=== PATIENT | female | born 1980 | race Caucasian/White ===

== ENCOUNTER 2022-12-02 17:31 | Inpatient (IN) | payer BC ==
[~2022-12-02] VITALS: Ht 160 cm; Wt 121.1 kg
[2022-12-02 17:42] VITALS: BP_SYST 146; PULSE 119; RESP 18; TEMP 98.2; O2SAT 97
[2022-12-02 18:54] LABS: PROTHROMBIN TIME 10.3 SECS (9.5-12.5)
[2022-12-02 18:56] LABS: CALCIUM 8.3 mg/dL (8.4-11.0); CREATININE 0.65 mg/dL (0.55-1.30); POTASSIUM 3.5 mmol/L (3.5-5.1)
[2022-12-02 19:01] LABS: ALBUMIN 3.5 g/dL (3.4-4.8); TOTAL BILIRUBIN 0.4 mg/dL (0.0-1.0); TOTAL PROTEIN, SERUM 7.1 g/dL (6.4-8.3)
[2022-12-02 19:04] LABS: BASOPHILS # (AUTO) 0.1 K/uL (0.0-0.2); BASOPHILS % (AUTO) 0.8 % (0.0-2.0); EOSINOPHILS # (AUTO) 0.2 K/uL (0.0-0.4); EOSINOPHILS % (AUTO) 1.2 % (0.0-4.0); LYMPHOCYTES # (AUTO) 2.5 K/uL (1.0-5.5); LYMPHOCYTES % (AUTO) 17.9 % (20.5-51.5); MEAN CORPUSCULAR HEMOGLOBIN 18 pg (27-31); MEAN CORPUSCULAR HGB CONC 29 % (32-36); MEAN CORPUSCULAR VOLUME 64 fL (79.0-98.0); MONOCYTES # (AUTO) 0.9 K/uL (0.0-1.0); MONOCYTES % (AUTO) 6.3 % (1.7-9.3); NEUTROPHILS # (AUTO) 10.2 K/uL (1.8-7.7); NEUTROPHILS % (AUTO) 73.8 % (40.0-70.0); PLATELET COUNT (AUTO) 474 K/uL (130-430); RED BLOOD CELL COUNT(AUTO) 2.99 MIL/uL (4.2-6.2); RED CELL DISTRIBUTION WIDTH 20.6 % (9.0-15.0); WHITE BLOOD COUNT (AUTO) 13.8 K/uL (4.8-10.8)
[2022-12-02 19:14] LABS: HEMATOCRIT 19.1 % (36-48); HEMOGLOBIN 5.4 g/dL (12.0-16.0)
[2022-12-02 19:37] LABS: BILIRUBIN,URINE NEGATIVE (NEGATIVE); BLOOD, URINE 3+ (NEGATIVE); COLOR,URINE YELLOW (YELLOW); GLUCOSE,URINE NEGATIVE (NEGATIVE); KETONES,URINE NEGATIVE (NEGATIVE); LEUKOCYTE ESTERASE ,URINE NEGATIVE (NEGATIVE); NITRITE, URINE NEGATIVE (NEGATIVE); PROTEIN URINE NEGATIVE (NEGATIVE); UROBILINOGEN,URINE 0.2 (0.2-1.0)
[2022-12-02 19:44] LABS: CLARITY/URINE SLIGHTLY HAZY (CLEAR)
[2022-12-02 20:03] LABS: RBC,URINE 50-80 /HPF (0-3); WBC,URINE 0-3 /HPF (0-3)
[2022-12-02 20:04] LABS: BACTERIA,URINE FEW /HPF (None Seen); MUCUS,URINE None Seen /LPF (None Seen)
[2022-12-02 20:13] LABS: ANISOCYTOSIS 2+; HYPOCHROMASIA 2+; POLYCHROMASIA 1+
[2022-12-02 20:14] LABS: STOMATOCYTES FEW
[2022-12-02] MEDS ORDERED: NALOXONE HCL 0.4 MG/ML AMP (NARCAN) IVP PRN ×2 (22:15)
[2022-12-02] MEDS ORDERED: LORazepam 2 MG/ML VIAL IVP PRN (22:15)
[2022-12-02] MEDS ORDERED: ACETAMINOPHEN 325 MG TABLET PO PRN (22:15)
[2022-12-02] MEDS ORDERED: ONDANSETRON HCL 4 MG/2 ML VIAL IVP PRN (22:15)
[2022-12-02] MEDS ORDERED: HYDROcodone/ACETAMIN 10-325 MG TAB PO PRN (22:15)
[2022-12-02] MEDS ORDERED: SOD FERRIC GLUC COMPLEX/SUC 125 MG in NS 100 ML IV SCH (22:15)
[2022-12-02] MEDS ORDERED: HYDROcodone/ACETAMIN 5-325 MG TAB (NORCO/ VICODIN) PO PRN (22:15)
[2022-12-02 22:56] VITALS: BP_SYST 111; PULSE 105; RESP 19; TEMP 98.8; O2SAT 99
[2022-12-02 23:12] VITALS: O2SAT 98
[2022-12-03 00:40] VITALS: BP_SYST 120; PULSE 95; RESP 19; TEMP 98.2; O2SAT 99
[2022-12-03] MEDS ORDERED: SOD FERRIC GLUC COMPLEX/SUC 62.5 MG/5 ML VIAL (FERRLECIT) IV ONE (04:19)
[2022-12-03 04:28] VITALS: BP_SYST 116; PULSE 93; RESP 18; TEMP 98.4; O2SAT 93
[2022-12-03] MEDS: SOD FERRIC GLUC COMPLEX/SUC 125 MG in NS 100 ML IV SCH (05:10)
[2022-12-03 05:41] LABS: BASOPHILS # (AUTO) 0.1 K/uL (0.0-0.2); EOSINOPHILS # (AUTO) 0.2 K/uL (0.0-0.4); EOSINOPHILS % (AUTO) 1.9 % (0.0-4.0); HEMOGLOBIN 7.7 g/dL (12.0-16.0); LYMPHOCYTES # (AUTO) 2.2 K/uL (1.0-5.5); MEAN CORPUSCULAR HEMOGLOBIN 21 pg (27-31); MEAN CORPUSCULAR HGB CONC 30 % (32-36); MEAN CORPUSCULAR VOLUME 70 fL (79.0-98.0); MONOCYTES # (AUTO) 0.8 K/uL (0.0-1.0); MONOCYTES % (AUTO) 6.4 % (1.7-9.3); NEUTROPHILS # (AUTO) 9.4 K/uL (1.8-7.7); NEUTROPHILS % (AUTO) 73.7 % (40.0-70.0); PLATELET COUNT (AUTO) 411 K/uL (130-430); RED BLOOD CELL COUNT(AUTO) 3.72 MIL/uL (4.2-6.2); RED CELL DISTRIBUTION WIDTH 26.3 % (9.0-15.0); WHITE BLOOD COUNT (AUTO) 12.7 K/uL (4.8-10.8)
[2022-12-03] MEDS: NORMAL SALINE 5 ML DISP.SYRIN IVF SCH ×3 (05:41→23:35)
[2022-12-03 06:31] LABS: ALBUMIN 3.2 g/dL (3.4-4.8); CALCIUM 7.8 mg/dL (8.4-11.0); CREATININE 0.58 mg/dL (0.55-1.30); PHOSPHORUS 3.8 mg/dL (2.7-4.5); POTASSIUM 3.8 mmol/L (3.5-5.1); TOTAL BILIRUBIN 0.6 mg/dL (0.0-1.0); TOTAL PROTEIN, SERUM 6.6 g/dL (6.4-8.3)
[2022-12-03 08:00] VITALS: BP_SYST 122; PULSE 71; RESP 16; TEMP 98.6; O2SAT 96
[2022-12-03 12:00] VITALS: BP_SYST 119; PULSE 88; RESP 16; TEMP 98.1; O2SAT 97
[2022-12-03 16:00] VITALS: BP_SYST 125; PULSE 83; RESP 16; TEMP 99; O2SAT 98
[2022-12-03 20:00] VITALS: BP_SYST 124; PULSE 90; RESP 18; TEMP 97.6; O2SAT 100
[2022-12-04 01:32] VITALS: BP_SYST 125; PULSE 88; RESP 19; TEMP 97.8; O2SAT 98
[2022-12-04 05:26] LABS: ERYTHROCYTE SEDIMENTATION RATE 7 MM/HR (0-20)
[2022-12-04] MEDS: SOD FERRIC GLUC COMPLEX/SUC 125 MG in NS 100 ML IV SCH (05:33)
[2022-12-04] MEDS: NORMAL SALINE 5 ML DISP.SYRIN IVF SCH ×2 (05:36→14:00)
[2022-12-04 05:42] LABS: BASOPHILS # (AUTO) 0.1 K/uL (0.0-0.2); BASOPHILS % (AUTO) 0.8 % (0.0-2.0); EOSINOPHILS # (AUTO) 0.3 K/uL (0.0-0.4); EOSINOPHILS % (AUTO) 2.6 % (0.0-4.0); HEMATOCRIT 26.6 % (36-48); HEMOGLOBIN 7.9 g/dL (12.0-16.0); LYMPHOCYTES # (AUTO) 2.1 K/uL (1.0-5.5); LYMPHOCYTES % (AUTO) 18.4 % (20.5-51.5); MEAN CORPUSCULAR HEMOGLOBIN 21 pg (27-31); MEAN CORPUSCULAR HGB CONC 30 % (32-36); MEAN CORPUSCULAR VOLUME 70 fL (79.0-98.0); MONOCYTES # (AUTO) 0.8 K/uL (0.0-1.0); MONOCYTES % (AUTO) 7.2 % (1.7-9.3); NEUTROPHILS # (AUTO) 8.2 K/uL (1.8-7.7); PLATELET COUNT (AUTO) 420 K/uL (130-430); RED BLOOD CELL COUNT(AUTO) 3.79 MIL/uL (4.2-6.2); RED CELL DISTRIBUTION WIDTH 25.6 % (9.0-15.0); WHITE BLOOD COUNT (AUTO) 11.5 K/uL (4.8-10.8)
[2022-12-04 05:57] LABS: CALCIUM 8.3 mg/dL (8.4-11.0); CREATININE 0.61 mg/dL (0.55-1.30); POTASSIUM 3.5 mmol/L (3.5-5.1)
[2022-12-04 08:30] VITALS: BP_SYST 110; PULSE 78; RESP 17; TEMP 98.3; O2SAT 98
[2022-12-04] MEDS ORDERED: SEVOFLURANE 15 MIN GAS INH ONE (13:40)
[2022-12-04] MEDS ORDERED: ONDANSETRON HCL 4 MG/2 ML VIAL ONE (13:40)
[2022-12-04] MEDS ORDERED: PROPOFOL 200MG/ 20ML VIAL (DIPRIVAN) IV ONE (13:40)
[2022-12-04] MEDS ORDERED: LR 1,000 ML IV.SOLN IV ONE (13:40)
[2022-12-04] MEDS ORDERED: DEXAMETHASONE SOD PHOSPHATE 4 MG/ML VIAL ONE (13:40)
[2022-12-04] MEDS ORDERED: KETOROLAC TROMETHAMINE 30 MG VIAL ONE (13:40)
[2022-12-04] MEDS ORDERED: NS IRRIG SOLN 5000 ML IR ONE (13:40)
[2022-12-04] MEDS ORDERED: MIDAZOLAM HCL 2 MG/2 ML VIAL (VERSED) ONE (13:40)
[2022-12-04] MEDS ORDERED: HYDROcodone/ACETAMIN 5-325 MG TAB (NORCO/ VICODIN) PO PRN (14:00)
[2022-12-04] MEDS ORDERED: OXYCODONE/ACETAMINOPHEN 5-325 TABLET PO PRN (14:00)
[2022-12-04] MEDS ORDERED: NALOXONE HCL 0.4 MG/ML AMP (NARCAN) IVP PRN ×2 (14:00→14:15)
[2022-12-04] MEDS ORDERED: ONDANSETRON HCL 4 MG/2 ML VIAL IVP PRN ×2 (14:00→14:15)
[2022-12-04] MEDS ORDERED: KETOROLAC TROMETHAMINE 30 MG VIAL IVP PRN (14:15)
[2022-12-04] MEDS ORDERED: HYDROmorphone 1 MG/ML INJ. CARTRIDGE IVP PRN (14:15)
[2022-12-04] MEDS ORDERED: METOCLOPRAMIDE HCL 10 MG/2 ML VIAL IVP PRN (14:15)
[2022-12-04] MEDS ORDERED: ACETAMINOPHEN I.V. 1000 MG 100 ML IV ONE (14:15)
[2022-12-04 16:15] VITALS: BP_SYST 110; PULSE 80; RESP 17; TEMP 97.2; O2SAT 79
== END 2022-12-04 17:06 | disposition home or self-care (01) | DRG 742 ==
LOC: SED 17:31 → SMU 20:33
PROVIDERS: ADMIT Preventive Medicine Preventive Medicine/Occupational Environmental Medicine; ATTEND Preventive Medicine Preventive Medicine/Occupational Environmental Medicine
PROC: 30233N1 Transfusion of Nonautologous Red Blood Cells into Peripheral Vein, Percutaneous Approach (ICD-10-PCS; principal; 2022-12-02)
PROC: 0UDB8ZZ Extraction of Endometrium, Via Natural or Artificial Opening Endoscopic (ICD-10-PCS; 2022-12-04)
PROC: 0UB98ZZ Excision of Uterus, Via Natural or Artificial Opening Endoscopic (ICD-10-PCS; 2022-12-04)
DX: D25.0 Submucous leiomyoma of uterus (principal); D62 Acute posthemorrhagic anemia; R65.10 Systemic inflammatory response syndrome (SIRS) of non-infectious origin without acute organ dysfunction; D25.1 Intramural leiomyoma of uterus; N84.0 Polyp of corpus uteri; N93.8 Other specified abnormal uterine and vaginal bleeding; D72.829 Elevated white blood cell count, unspecified; N83.201 Unspecified ovarian cyst, right side; D75.839 Thrombocytosis, unspecified; E83.52 Hypercalcemia; Z88.8 Allergy status to other drugs, medicaments and biological substances; Z79.899 Other long term (current) drug therapy
CPT/HCPCS: 36415; 76830-TC; 76857; 80048; 80053; 81000; 83735; 84100; 85025; 85610-TC; 85651-TC; 85730-TC; 86304; 86886; 86900; 86901; 86920; 87040; 87081; 87086; 88305; 99291; C1819; J1100; J1885; J2405; J2704; J2916; J3465; J7120; P9021

== ENCOUNTER 2023-02-03 08:46 | Observation (INO) | payer BC ==
[~2023-02-03] VITALS: Ht 160 cm; Wt 117.9 kg
[2023-02-03 08:50] VITALS: BP_SYST 147; PULSE 82; RESP 18; TEMP 97; O2SAT 96
[2023-02-03 09:37] LABS: BASOPHILS # (AUTO) 0.1 K/uL (0.0-0.2); BASOPHILS % (AUTO) 1.1 % (0.0-2.0); EOSINOPHILS # (AUTO) 0.1 K/uL (0.0-0.4); EOSINOPHILS % (AUTO) 2.6 % (0.0-4.0); HEMATOCRIT 24.8 % (36-48); HEMOGLOBIN 7.4 g/dL (12.0-16.0); LYMPHOCYTES % (AUTO) 17.1 % (20.5-51.5); MEAN CORPUSCULAR HEMOGLOBIN 22 pg (27-31); MEAN CORPUSCULAR HGB CONC 30 % (32-36); MEAN CORPUSCULAR VOLUME 73 fL (79.0-98.0); MONOCYTES # (AUTO) 0.3 K/uL (0.0-1.0); MONOCYTES % (AUTO) 5.6 % (1.7-9.3); NEUTROPHILS # (AUTO) 4.1 K/uL (1.8-7.7); NEUTROPHILS % (AUTO) 73.6 % (40.0-70.0); PLATELET COUNT (AUTO) 411 K/uL (130-430); RED BLOOD CELL COUNT(AUTO) 3.38 MIL/uL (4.2-6.2); WHITE BLOOD COUNT (AUTO) 5.6 K/uL (4.8-10.8)
[2023-02-03 09:48] LABS: CALCIUM 8.7 mg/dL (8.4-11.0); CREATININE 0.72 mg/dL (0.55-1.30); POTASSIUM 3.5 mmol/L (3.5-5.1)
[2023-02-03 09:53] LABS: ALBUMIN 3.3 g/dL (3.4-4.8); TOTAL BILIRUBIN 0.4 mg/dL (0.0-1.0); TOTAL PROTEIN, SERUM 6.7 g/dL (6.4-8.3)
[2023-02-03 10:19] LABS: ANISOCYTOSIS 2+; HYPOCHROMASIA 1+; OVALOCYTES FEW; POLYCHROMASIA SLIGHT; TARGET CELLS RARE
[2023-02-03] MEDS ORDERED: HYDROcodone/ACETAMIN 5-325 MG TAB (NORCO/ VICODIN) PO PRN ×2 (11:45→12:15)
[2023-02-03] MEDS ORDERED: ACETAMINOPHEN 325 MG TABLET PO PRN ×2 (11:45→12:15)
[2023-02-03] MEDS ORDERED: ONDANSETRON HCL 4 MG/2 ML VIAL IVP PRN (11:45)
[2023-02-03 17:38] VITALS: BP_SYST 115; PULSE 86; RESP 18; TEMP 98.7; O2SAT 96
[2023-02-03 20:00] VITALS: BP_SYST 124; PULSE 84; RESP 20; TEMP 97.8; O2SAT 98
[2023-02-04 00:12] VITALS: BP_SYST 108; PULSE 83; RESP 20; TEMP 98.3; O2SAT 98
[2023-02-04 04:00] VITALS: BP_SYST 116; PULSE 80; RESP 18; TEMP 97.9; O2SAT 98
[2023-02-04 05:22] LABS: BASOPHILS # (AUTO) 0.1 K/uL (0.0-0.2); BASOPHILS % (AUTO) 0.8 % (0.0-2.0); EOSINOPHILS # (AUTO) 0.2 K/uL (0.0-0.4); HEMATOCRIT 26.1 % (36-48); HEMOGLOBIN 7.7 g/dL (12.0-16.0); LYMPHOCYTES % (AUTO) 24.3 % (20.5-51.5); MEAN CORPUSCULAR HEMOGLOBIN 22 pg (27-31); MEAN CORPUSCULAR HGB CONC 30 % (32-36); MEAN CORPUSCULAR VOLUME 74 fL (79.0-98.0); MONOCYTES # (AUTO) 0.6 K/uL (0.0-1.0); NEUTROPHILS # (AUTO) 5.5 K/uL (1.8-7.7); NEUTROPHILS % (AUTO) 65.9 % (40.0-70.0); PLATELET COUNT (AUTO) 453 K/uL (130-430); RED BLOOD CELL COUNT(AUTO) 3.53 MIL/uL (4.2-6.2); RED CELL DISTRIBUTION WIDTH 21.7 % (9.0-15.0); WHITE BLOOD COUNT (AUTO) 8.4 K/uL (4.8-10.8)
[2023-02-04 05:38] LABS: ALBUMIN 3.2 g/dL (3.4-4.8); CREATININE 0.61 mg/dL (0.55-1.30); POTASSIUM 3.7 mmol/L (3.5-5.1); TOTAL BILIRUBIN 0.4 mg/dL (0.0-1.0); TOTAL PROTEIN, SERUM 6.9 g/dL (6.4-8.3)
[2023-02-04 08:00] VITALS: BP_SYST 125; PULSE 82; RESP 18; TEMP 97.7; O2SAT 99
[2023-02-04 11:30] VITALS: BP_SYST 134; PULSE 96; RESP 19; TEMP 98.4; O2SAT 99
[2023-02-04] MEDS ORDERED: LORATADINE 10 MG TABLET PO ONE (11:30)
[2023-02-04 16:00] VITALS: BP_SYST 118; PULSE 87; RESP 19; TEMP 97.4; O2SAT 100
[2023-02-04 18:19] LABS: HEMOGLOBIN 8.9 g/dL (12.0-16.0)
[2023-02-04] MEDS ORDERED: FERR210T PO (19:26)
[2023-02-04 20:22] VITALS: BP_SYST 116; PULSE 87; RESP 20; TEMP 97.9; O2SAT 97
== END 2023-02-04 21:00 | disposition home or self-care (01) ==
LOC: SED 08:46 → STU 11:59 → SMU 02-04 14:31
PROVIDERS: ADMIT Family Medicine; ATTEND Family Medicine
DX: D50.0 Iron deficiency anemia secondary to blood loss (chronic) (principal); N93.9 Abnormal uterine and vaginal bleeding, unspecified; K57.90 Diverticulosis of intestine, part unspecified, without perforation or abscess without bleeding; E66.01 Morbid (severe) obesity due to excess calories; E87.1 Hypo-osmolality and hyponatremia; E44.1 Mild protein-calorie malnutrition; N83.209 Unspecified ovarian cyst, unspecified side; Z68.42 Body mass index [BMI] 45.0-49.9, adult; Z79.899 Other long term (current) drug therapy
CPT/HCPCS: 80053 ×2; 84702; 85025 ×2; 86886; 86900; 86901; 86920; 36415 ×2; 93005; 76856; 72197; 99284; 85018; 71045; 36430; G0378 ×2; P9021

== ENCOUNTER 2023-11-16 14:17 | Inpatient (IN) | payer BC ==
[~2023-11-16] VITALS: Ht 160 cm; Wt 122.5 kg
[2023-11-16 14:17] VITALS: BP_SYST 125; PULSE 132; RESP 20; TEMP 100.3; TEMP 97.6; O2SAT 99
[~2023-11-16 14:17] MED LIST: FERR210T PO
--- NOTE | 2023-11-16 14:17 | NUR ---
BROUGHT BACK TO BED IN [place]WAY AND TRIAGED. REPORT GIVEN TO OWEN
--- NOTE | 2023-11-16 14:30 | NUR ---
Patient BIB spouse from home. Chief complaint: Cough SOB patient reports feeling difficult to take a deep breath. Patient is a&ox4 and stable. Patient placed in bed and on monitor.
--- NOTE | 2023-11-16 14:39 | NUR ---
ER Dr. Vora at bedside examining patient.
[2023-11-16] MEDS: NACL 0.9% 2,000 ML IV ONE (14:57)
[2023-11-16] MEDS: ACETAMINOPHEN 500 MG TABLET PO ONE (14:59)
[2023-11-16 15:21] LABS: BASOPHILS # (AUTO) 0.1 K/uL (0.0-0.2); BASOPHILS % (AUTO) 1.5 % (0.0-2.0); EOSINOPHILS # (AUTO) 0.1 K/uL (0.0-0.4); EOSINOPHILS % (AUTO) 0.7 % (0.0-4.0); HEMATOCRIT 32.1 % (36-48); HEMOGLOBIN 9.9 g/dL (12.0-16.0); LYMPHOCYTES # (AUTO) 1.3 K/uL (1.0-5.5); LYMPHOCYTES % (AUTO) 13.3 % (20.5-51.5); MEAN CORPUSCULAR HEMOGLOBIN 23 pg (27-31); MEAN CORPUSCULAR HGB CONC 31 % (32-36); MEAN CORPUSCULAR VOLUME 73 fL (79.0-98.0); MONOCYTES # (AUTO) 0.8 K/uL (0.0-1.0); MONOCYTES % (AUTO) 8.8 % (1.7-9.3); NEUTROPHILS # (AUTO) 7.1 K/uL (1.8-7.7); NEUTROPHILS % (AUTO) 75.7 % (40.0-70.0); PLATELET COUNT (AUTO) 464 K/uL (130-430); RED BLOOD CELL COUNT(AUTO) 4.41 MIL/uL (4.2-6.2); RED CELL DISTRIBUTION WIDTH 23.7 % (9.0-15.0); WHITE BLOOD COUNT (AUTO) 9.4 K/uL (4.8-10.8)
[2023-11-16 15:42] LABS: INR 0.9 (0.8-1.2); PROTHROMBIN TIME 10.2 SECS (9.5-12.5)
[2023-11-16 15:43] LABS: BILIRUBIN,URINE NEGATIVE (NEGATIVE); BLOOD, URINE 3+ (NEGATIVE); CLARITY/URINE CLEAR (CLEAR); COLOR,URINE YELLOW (YELLOW); GLUCOSE,URINE NEGATIVE (NEGATIVE); KETONES,URINE NEGATIVE (NEGATIVE); LEUKOCYTE ESTERASE ,URINE NEGATIVE (NEGATIVE); NITRITE, URINE NEGATIVE (NEGATIVE); PROTEIN URINE NEGATIVE (NEGATIVE); UROBILINOGEN,URINE 0.2 (0.2-1.0)
[2023-11-16 15:45] LABS: ALANINE AMINOTRANSFERASE 20 U/L (12-78); ALBUMIN 3.7 g/dL (3.4-4.8); ANION GAP 11 (5-15); ASPARTATE AMINOTRANSFERASE 19 U/L (10-37); CALCIUM 8.8 mg/dL (8.4-11.0); CARBON DIOXIDE 27 mmol/L (23-29); CHLORIDE 101 mmol/L (98-107); GFR AFRICAN AMERICAN 100 mL/min (>90); GLUCOSE 122 mg/dL (74-106); POTASSIUM 3.2 mmol/L (3.5-5.1); SODIUM SERUM 139 mmol/L (136-145); TOTAL BILIRUBIN 0.4 mg/dL (0.0-1.0); TOTAL PROTEIN, SERUM 7.9 g/dL (6.4-8.3); UREA NITROGEN, BLOOD 5 mg/dL (8-21)
[2023-11-16 15:47] LABS: BILIRUBIN,DIRECT 0.1 mg/dL (0.0-0.3)
[2023-11-16 15:48] LABS: GFR NON AFRICAN-AMERICAN 83 mL/min (>90)
[2023-11-16] MEDS: AZITHROMYCIN 500 MG in NS 250 ML IV ONE (16:00)
[2023-11-16 16:04] LABS: BACTERIA,URINE None Seen /HPF (None Seen)
[2023-11-16] MEDS ORDERED: AZITHROMYCIN 500 MG/VIAL (ZITHROMAX) IV ONE (16:05)
[2023-11-16] MEDS ORDERED: cefTRIAXone 1 GM VIAL ONE (16:05)
[2023-11-16 16:08] LABS: INFLUENZA TYPE A Negative (NEGATIVE); INFLUENZA TYPE B NEGATIVE (NEGATIVE)
--- NOTE | 2023-11-16 16:13 | NUR ---
SPOKE TO DON FROM [facility] + AWARE
[2023-11-16] MEDS: cefTRIAXone 1 GM in D5W 50 ML IV ONE (16:26)
[2023-11-16] MEDS: POTASSIUM CHLORIDE 20 MEQ/PKT PACKET PO ONE (16:29)
--- NOTE | 2023-11-16 16:30 | NUR ---
Patient assisted to the restroom before starting the antibiotics
--- NOTE | 2023-11-16 16:43 | NUR ---
Patient to ER bed 08. Side rails up. Plan of care continues.
[2023-11-16 16:57] LABS: ANISOCYTOSIS 2+; HYPOCHROMASIA 2+; OVALOCYTES FEW; POLYCHROMASIA 1+; TEAR DROP CELLS FEW
[2023-11-16 16:58] LABS: STOMATOCYTES FEW
--- NOTE | 2023-11-16 17:46 | NUR ---
CALLED [facility]. ADMIT REQUESTED. PENDING CALL BACK FOR PEER TO PEER CONSULTATION
--- NOTE | 2023-11-16 18:00 | NUR ---
PT GOWNED, BSC PLACED FOR PT COMFORT WHILE UNDER QUARANTINE WITH NEG. PRESSURE. PT NOTED ANEMIA AND NOTIFIED PRIMARY RN.
--- NOTE | 2023-11-16 18:09 | NUR ---
Admit bed requested Patient will be admitted to care of Dr. CRUZ. Admitted to TELE unit. Diagnosis UTI, PNEUMONIA, COVID Inpatient (Yes or No) YES Observation (Yes or No) NO Orientation concerns or request close to nursing station (Yes or No) NO Covid Status POSITIVE On vent or bipap NO Isolation requirements NO Needs a sitter NO From Home (Yes or if No enter name of facility) YES Requires Dialysis (Yes or No) NO Med Rec Completed (Yes of No) PENDING
--- NOTE | 2023-11-16 19:30 | NUR ---
Report given to YOUSUF Morgan for continuation of care.
--- NOTE | 2023-11-16 20:45 | NUR ---
Patient will be admitted to care of [facility]. Admitted to telemetry unit. Will go to room 133 B. Belongings list completed. Complete and up to date summary report printed. SBAR report to be given at bedside with opportunity for questions.
--- NOTE | 2023-11-16 20:45 | NUR ---
Received patient from ER to room 133B, dx: UTI, PNA, COVID. Patient is on Airborne Isolation. Patient acclimated to room and roommate. Patient's vitals WNL and oxygenation is 95%.
[2023-11-16 22:17] VITALS: O2SAT 98
[2023-11-16 22:29] VITALS: BP_SYST 115; PULSE 98; O2SAT 98
[2023-11-16] MEDS ORDERED: ALBUTEROL SULFATE 0.083% 2.5 MG/3 ML VIAL.NEB INH PRN (22:30)
[2023-11-16] MEDS ORDERED: ACETAMINOPHEN 325 MG TABLET PO PRN (22:30)
[2023-11-16] MEDS ORDERED: LORazepam 2 MG/ML VIAL IVP PRN (22:30)
[2023-11-16] MEDS ORDERED: ONDANSETRON HCL 4 MG/2 ML VIAL IVP PRN (22:30)
[2023-11-16] MEDS ORDERED: IPRATROPIUM BROM 0.5 MG/2.5 ML VIAL.NEB (ATROVENT) INH PRN (22:30)
[2023-11-16] MEDS ORDERED: NALOXONE HCL 0.4 MG/ML AMP (NARCAN) IVP PRN ×2 (22:30)
[2023-11-16] MEDS ORDERED: HYDROcodone/ACETAMIN 10-325 MG TAB PO PRN (22:30)
[2023-11-16] MEDS ORDERED: HYDROcodone/ACETAMIN 5-325 MG TAB (NORCO/ VICODIN) PO PRN (22:30)
--- NOTE | 2023-11-17 02:00 | NUR ---
Dr. Briggs visited patient this morning and is aware patient is allergic to Ancef and was ordered Rocephin. Patient was ordered Levaquin instead. Patient is AOx4 and breaths even and unlabored, no c/o pain or discomfort. Oxygenation remains 95-99%.
--- NOTE | 2023-11-17 02:40 | NUR ---
CONSULTATION PAGED/CALLED Reason for Consultation: UTI Person Who was Notified: DR SCHMITZ HERE AND SAW PT Consulting Physician: DR SCHMITZ Rivet Tester Specialty: Ordering Physician: JENNIFFER
--- NOTE | 2023-11-17 02:43 | NUR ---
CONSULTATION PAGED/CALLED Reason for Consultation: PNA Person Who was Notified: VIVIANE Consulting Physician: LENA Rn Review Specialty: Ordering Physician: JENNIFFER
--- NOTE | 2023-11-17 06:19 | NUR ---
Closing: Patient is resting comfortably in bed with no c/o pain at this time. WIll continue with plan of care.
[2023-11-17 06:35] LABS: BASOPHILS # (AUTO) 0.1 K/uL (0.0-0.2); BASOPHILS % (AUTO) 0.7 % (0.0-2.0); EOSINOPHILS # (AUTO) 0.1 K/uL (0.0-0.4); EOSINOPHILS % (AUTO) 0.9 % (0.0-4.0); HEMATOCRIT 29.1 % (36-48); HEMOGLOBIN 8.9 g/dL (12.0-16.0); LYMPHOCYTES # (AUTO) 1.3 K/uL (1.0-5.5); LYMPHOCYTES % (AUTO) 13.4 % (20.5-51.5); MEAN CORPUSCULAR HEMOGLOBIN 22 pg (27-31); MEAN CORPUSCULAR HGB CONC 31 % (32-36); MEAN CORPUSCULAR VOLUME 73 fL (79.0-98.0); MONOCYTES # (AUTO) 0.9 K/uL (0.0-1.0); MONOCYTES % (AUTO) 9.7 % (1.7-9.3); NEUTROPHILS # (AUTO) 7.1 K/uL (1.8-7.7); NEUTROPHILS % (AUTO) 75.3 % (40.0-70.0); PLATELET COUNT (AUTO) 408 K/uL (130-430); RED BLOOD CELL COUNT(AUTO) 3.97 MIL/uL (4.2-6.2); WHITE BLOOD COUNT (AUTO) 9.4 K/uL (4.8-10.8)
[2023-11-17] MEDS: NORMAL SALINE 5 ML DISP.SYRIN IVF SCH (06:58)
[2023-11-17 07:01] LABS: CALCIUM 8.4 mg/dL (8.4-11.0); CREATININE 0.66 mg/dL (0.55-1.30); POTASSIUM 3.4 mmol/L (3.5-5.1)
[2023-11-17 07:37] LABS: RED CELL DISTRIBUTION WIDTH 23.1 % (9.0-15.0)
[2023-11-17 08:00] VITALS: BP_SYST 131; PULSE 81; RESP 16; TEMP 98; O2SAT 99
[2023-11-17 08:59] VITALS: O2SAT 98
[2023-11-17] MEDS ORDERED: NON-FORMULARY MEDICATION (Ferric Citrate 210 MG) PO SCH (09:00)
[2023-11-17] MEDS: levoFLOXacin 500 MG TABLET PO SCH (09:44)
--- NOTE | 2023-11-17 10:20 | NUR ---
HIGH ALERT NOTE: Called Dr. CRUZ back at [phone] identified within the medical roster to verify physician authenticity. KDUR [id number] PO ONCE ORDERED BY DR. CRUZ WITH READ BACK VERIFIED.
[2023-11-17 12:00] VITALS: BP_SYST 132; PULSE 86; RESP 16; TEMP 97.8; O2SAT 97
[2023-11-17] MEDS: POTASSIUM CHLORIDE 20 MEQ TABLET.ER PO ONE (12:21)
[2023-11-17 15:37] VITALS: BP_SYST 128; PULSE 72; RESP 16; TEMP 98.2; O2SAT 97
--- NOTE | 2023-11-17 15:43 | NUR ---
INFORMED BY RESOURCE NURSE JIMENA THAT PATIENT DISCHARGE MEDICATIONS HAVE BEEN GIVEN WITH VERBAL ORDER TO THE PATIENT'S PREFERRED PHARMACY AND CANNOT BE FINALIZED ON THE DISCHARGE PAPER WORK BUT THAT IT IS STILL OK TO DISCHARGE THE PATIENT.
[2023-11-17 16:00] VITALS: BP_SYST 128; PULSE 72; RESP 16; TEMP 98.2; O2SAT 97
[2023-11-17] MEDS ORDERED: AZITHROMYCIN 500 MG in NS 250 ML IV SCH (16:00)
[2023-11-17] MEDS: cefTRIAXone 1 GM IVPB PREMIX 50 ML IV SCH (16:00)
--- NOTE | 2023-11-17 16:22 | NUR ---
PATIENT DISCHARGED. PATIENT DISCHARGE PACKET COMPLETED, SIGNED, ORIGINAL IN CHART, AND COPY SENT HOME WITH PATIENT. CONFIRMED WITH PATIENT THAT VERBAL ORDER FOR LEVAQUIN WAS SENT TO HER PREFERRED PHARMACY AND THAT IT WAS AVAILABLE PRIOR TO PATIENT DISCHARGE. ALL BELONGINGS RETURNED TO PATIENT. IV REMOVED, DRESSING APPLIED, CATHETER TIP INTACT AFTER REMOVAL, AND DRESSING CLEAN DRY AND INTACT AT TIME OF DISCHARGE. PATIENT EDUCATED ON HOW TO PREVENT THE SPREAD OF COVID. PATIENT VOICED UNDERSTANDING OF ALL INSTRUCTIONS/EDUCATION. PATIENT TAKEN TO 'S CAR IN WHEELCHAIR. PATIENT INDEPENDENTLY TRANSFERRED TO HER 'S VEHICLE AND DISCHARGED.
== END 2023-11-17 16:22 | disposition home or self-care (01) | DRG 177 ==
LOC: SED 14:17 → STU 18:26
PROVIDERS: ADMIT Specialist; ATTEND Specialist
DX: U07.1 COVID-19 (principal); J12.82 Pneumonia due to coronavirus disease 2019; Z68.42 Body mass index [BMI] 45.0-49.9, adult; D50.0 Iron deficiency anemia secondary to blood loss (chronic); E66.9 Obesity, unspecified; N92.0 Excessive and frequent menstruation with regular cycle; I10 Essential (primary) hypertension; Z88.8 Allergy status to other drugs, medicaments and biological substances; Z79.899 Other long term (current) drug therapy; Z86.73 Personal history of transient ischemic attack (TIA), and cerebral infarction without residual deficits
CPT/HCPCS: 36415; 71045; 80048; 80076; 81000; 81001; 81003; 81015; 83605; 83880; 84484; 85025; 85610; 85730; 87040; 87086; 93005; 94070; 94760; 99291; 99292; G0378; J0456; J0696; J7050